=== PATIENT | female | born 1975 | race Hispanic/Latino ===

== ENCOUNTER 2019-10-15 17:22 | Emergency (ER) | payer OTHER ==
[2019-10-15] MEDS ORDERED: KETOROLAC TROMETHAMINE 30MG/ML ONE (18:17)
[2019-10-15] MEDS ORDERED: DIAZEPAM 5 MG TABLET ONE (18:17)
== END 2019-10-15 19:20 | disposition home or self-care (01) ==
LOC: EDH 17:22
DX: S13.8XXA Sprain of joints and ligaments of other parts of neck, initial encounter (principal); S20.212A Contusion of left front wall of thorax, initial encounter; I10 Essential (primary) hypertension; Z90.710 Acquired absence of both cervix and uterus; V59.50XA Passenger in pick-up truck or van injured in collision with unspecified motor vehicles in traffic accident, initial encounter; Y93.89 Activity, other specified; Y92.89 Other specified places as the place of occurrence of the external cause; Y99.8 Other external cause status
CPT/HCPCS: 70450; 71101; 72125; 99284; J1885